=== PATIENT | female | born 1980 | race Caucasian/White ===

== ENCOUNTER 2017-12-13 08:45 | Emergency (ER) | payer OTHER ==
[2017-12-13 09:07] VITALS: BP 110/58
--- NOTE | 2017-12-13 09:25 | UC ---
Lower Extremity/Ankle HPI - HPI Summary HPI Summary: Patient presents with an unremarkable past medical history. She presents today s /p mechanical fall that occurred yesterday while hiking. At that time she feel on her right knee and did not have any pain in the left foot. She was able to get up and continue walking and finished the hike without any distracting pain of the right knee of left foot. This morning she had pain on the top of the left foot and could not walk on it. She states not pain at rest and sever pain when she tries to walk. she denies . She denies any head or neck injury no LOC at time of fall. - History of Current Complaint Chief Complaint: UCLowerExtremity Stated Complaint: L FOOT INJURY Time Seen by Provider: 12/13/17 09:09 Hx Obtained From: Patient Hx Last Menstrual Period: 11/27/17 Onset/Duration: Gradual Onset, Lasting Hours Severity Initially: Mild Severity Currently: Severe Pain Intensity: 9 Aggravating Factor(s): Standing, Ambulation Alleviating Factor(s): Rest, Elevation Able to Bear Weight: No - Risk Factors Gout Risk Factors: Negative DVT Risk Factors: Negative Septic Arthritis Risk Factor: Negative - Allergies/Home Medications Allergies/Adverse Reactions: Allergies Allergy/AdvReac Type Severity Reaction Status Date / Time No Known Allergies Allergy Verified 12/13/17 09:08 Home Medications: Home Medications NK [No Home Medications Reported] 12/13/17 [History Confirmed 12/13/17] PMH/Surg Hx/FS Hx/Imm Hx Previously Healthy: Yes - Surgical History Surgical History: None - Family History Known Family History: Positive: Diabetes - Social History Lives: With Family Alcohol Use: None Substance Use Type: None Smoking Status (MU): Never Smoked Tobacco Have You Smoked in the Last Year: No Review of Systems Constitutional: Negative Skin: Negative Eyes: Negative ENT: Negative Respiratory: Negative Cardiovascular: Negative Gastrointestinal: Negative Genitourinary: Negative Motor: Negative Neurovascular: Negative Musculoskeletal: Decreased ROM, Myalgia, Other: - left foot pain, swelling and bruising. Neurological: Negative Psychological: Negative Is Patient Immunocompromised?: No All Other Systems Reviewed And Are Negative: Yes Physical Exam Triage Information Reviewed: Yes Appearance: Pain Distress Vital Signs: Initial Vital Signs Temp 99.6 F 12/13/17 09:00 Pulse 79 12/13/17 09:00 Resp 14 12/13/17 09:00 BP 110/58 12/13/17 09:00 Pulse Ox 100 12/13/17 09:00 Vital Signs Reviewed: Yes Musculoskeletal: Positive: Strength Limited @, ROM Limited @ - left fot; dorsum mid foot yellow bruise noted. Palpationl tenderness of mid-dorsal foot on palpation. ROM, full flexion and extension of ankle and toes, but with reproducible pain of the dorsum of foot with flexion and extension of toes. Sensation: intact. Vasc; PP +, cap refill less than 3 seconds. Neurological Exam: Normal Skin Exam: Normal Lower Extremity Course/Dx - Course Course Of Treatment: Patient presents one day s/p mechanical fall yesterday. Presents with noted bruising to the dorum of the left foot. She remained neuro- vasc intact, but could not bear weight. Xrays of the left foot were obtained and were negative for fracture. She was placed in post-op shoe, provided crutches for non-weigh bearing and referred to orthopedist, [facility]. The injuries I feel are consistent the foot strain, parker. However is her symptoms persist futher imaging is warrented. The patient verbalized understanding of and in agreement with the discharge plan. - Differential Dx/Diagnosis Differential Diagnosis/HQI/PQRI: Sprain, Strain Provider Diagnoses: Left foot strain. Left foot sprain Discharge - Sign-Out/Discharge Documenting (check all that apply): Patient Departure - Discharge Plan Condition: Stable Disposition: HOME Patient Education Materials: Foot Sprain (ED) Referrals: No Primary Care Phys,NOPCP [Primary Care Provider] - Inna Paul MD [Medical Doctor] - Additional Instructions: Please call Dr. Paul for out patient follow up of your foot injury. - Billing Disposition and Condition Condition: STABLE Disposition: Home
--- NOTE | 2017-12-13 09:53 | RAD ---
INDICATION: Left foot injury COMPARISON: None TECHNIQUE: AP, lateral, and oblique views were obtained. FINDINGS: The bony structures, joint spaces, and soft tissues are normal for age. IMPRESSION: NEGATIVE EXAMINATION.
== END 2017-12-13 10:36 | disposition home or self-care (01) ==
LOC: UCEAST 08:45
DX: S96.912A Strain of unspecified muscle and tendon at ankle and foot level, left foot, initial encounter (principal); S93.602A Unspecified sprain of left foot, initial encounter; M25.561 Pain in right knee; W19.XXXA Unspecified fall, initial encounter; Y92.9 Unspecified place or not applicable
CPT/HCPCS: 99203; G0463

== ENCOUNTER 2018-05-23 09:26 | Emergency (ER) | payer OTHER ==
[2018-05-23 09:35] VITALS: BP 128/83
[2018-05-23] MEDS ORDERED: Albuterol/Ipratropium NEB.SOL* Albuterol 2.5 MG/Ipratropium 0.5 MG 3 ML INH ONE (10:37)
--- NOTE | 2018-05-23 10:42 | ED ---
HPI Cardiac - HPI Summary HPI Summary: Patient presents with 1 week of respiratory symptoms/flulike symptoms. She reports she started with a dry cough on Thursday. This is progressed into nasal congestion with rhinorrhea, postnasal drip and symptoms of body aches yesterday. This is resolved today. She denies tahmina fever, chills, sore throat , ear pain, rash, nausea, vomiting, diarrhea. She denies known sick contacts. She tried an [id number] pain medication for her headache which has helped. Denies history of asthma, pneumonia and smoking. - History of Current Complaint Chief Complaint: UCRespiratory Stated Complaint: COUGH Time Seen by Provider: 05/23/18 10:21 Hx Obtained From: Patient Hx Last Menstrual Period: 05/06/18 Pain Intensity: 4 - Allergy/Home Medications Allergies/Adverse Reactions: Allergies Allergy/AdvReac Type Severity Reaction Status Date / Time No Known Allergies Allergy Verified 05/23/18 09:35 PMH/Surg Hx/FS Hx/Imm Hx Previously Healthy: Yes Cardiovascular History: Denies: Hx Congenital Heart Disease, Hx Congestive Heart Failure Respiratory History: Denies: Hx Asthma, Hx Chronic Obstructive Pulmonary Disease (COPD), Hx Pneumonia, Hx Pulmonary Embolism Sensory History: Reports: Hx Contacts or Glasses Opthamlomology History: Reports: Hx Contacts or Glasses Infectious Disease History: No Infectious Disease History: Denies: Traveled Outside the [place] in Last 30 Days - Family History Known Family History: Positive: Diabetes - Social History Alcohol Use: None Hx Substance Use: No Substance Use Type: Reports: None Hx Tobacco Use: No Smoking Status (MU): Never Smoked Tobacco Have You Smoked in the Last Year: No Review of Systems Positive: Fatigue. Negative: Fever, Chills Eyes: Negative ENT: Other - PND Positive: Nasal Discharge. Negative: Sore Throat, Ear Ache Positive: Chest Pain - lower sternal and epigastric soreness w/ cough Positive: Cough. Negative: Shortness Of Breath Gastrointestinal: Negative Positive: no symptoms reported Musculoskeletal: Negative Skin: Negative Positive: Headache. Negative: Weakness, Paresthesia, Numbness, Syncope, Slurred Speech Psychological: Normal All Other Systems Reviewed And Are Negative: Yes Physical Exam Triage Information Reviewed: Yes Vital Signs On Initial Exam: Initial Vitals Temp Pulse Resp BP Pulse Ox 99.8 F 98 20 128/83 97 05/23/18 09:31 05/23/18 09:31 05/23/18 09:31 05/23/18 09:31 05/23/18 09:31 Vital Signs Reviewed: Yes Appearance: Positive: No Pain Distress, Ill-Appearing - appears mildly ill - dry cough throughout visit, Thin Skin: Positive: Warm, Skin Color Reflects Adequate Perfusion, Dry - no diaphoresis, no rash Head/Face: Positive: Normal Head/Face Inspection Eyes: Positive: Normal, EOMI, KARLIE, Conjunctiva Clear. Negative: Conjunctiva Inflammed, Discharge ENT: Positive: Normal ENT inspection, Hearing grossly normal, Pharynx normal, Nasal congestion - mild, Nasal drainage - clear, TMs normal, Uvula midline. Negative: Tonsillar swelling, Tonsillar exudate, Trismus, Muffled voice Neck: Positive: Supple, Nontender Respiratory/Lung Sounds: Positive: Clear to Auscultation, Breath Sounds Present , Other - coughing. Negative: Rales, Rhonchi, Stridor, Tracheal Deviation, Wheezes, Fatigue Cardiovascular: Positive: Normal, RRR, S1, S2. Negative: Murmur, Rub, Leg Edema Left, Leg Edema Right Abdomen Description: Positive: Nontender, Soft Musculoskeletal: Positive: Normal, Strength/ROM Intact Neurological: Positive: Normal, Sensory/Motor Intact, Alert, Oriented to Person Place, Time, CN Intact II-III Psychiatric: Positive: Normal - concerned but polite, cooperative Diagnostics - Vital Signs Vital Signs Temp Pulse Resp BP Pulse Ox 05/23/18 09:31 99.8 F 98 20 128/83 97 - Laboratory Lab Statement: Any lab studies that have been ordered have been reviewed, and results considered in the medical decision making process. Re-Evaluation - Re-Evaluation First Eval Change: Improved Disposition - Course Course Of Treatment: r/o PNA, bronchitis. CXR: no acute findings. Suspect bronchitis and tx implemented for this. Pt aware of supportive care and f/u as well as danger s/sx of when to return to ED. - Diagnoses Provider Diagnoses: Bronchitis Discharge - Sign-Out/Discharge Documenting (check all that apply): Patient Departure All imaging exams completed and their final reports reviewed: Yes - Discharge Plan Condition: Stable Disposition: HOME Prescriptions: Albuterol HFA INHALER* [Ventolin HFA Inhaler*] 2 puff INH Q6H PRN #1 mdi PRN Reason: Cough Patient Education Materials: Acute Bronchitis (ED) Referrals: [facility] [Outside] Additional Instructions: You appear to have a viral URI resulting in bronchitis - see education for details. You may try an inhaler sent to your pharmacy for relief of chest tightness with cough as well as the following remedies for relief: Nasal wash (netti pot or saline spray) & salt water throat gargles 2 x day Drink you body weight in ounces of water every day Sleep 8+ hours per night Avoid Dairy and sugar Hot herbal/decaf tea with lemon & honey Chicken broth (preferably organic, free range chicken) Humidifier in house, but especially near bed at night Keep home temperature at 68F or less to reduce dryness Use cough drops/throat lozenges Try a facial steam with or without eucalyptus essential oil or Manish's Vapor rub for congestion Avoid smoke, candles, perfumes, colognes, scented soaps/detergents , air fresheners and cleaning chemicals as these can cause airway irritation and trigger coughing Start Vitamin D3 5000iu and Vitamin C 1000mg every day during illness If symptoms persist, follow-up with [facility]. *If worse, go to ED - Billing Disposition and Condition Condition: STABLE Disposition: Home
== END 2018-05-23 11:21 | disposition home or self-care (01) ==
LOC: UCEAST 09:26
DX: J40 Bronchitis, not specified as acute or chronic (principal)
CPT/HCPCS: 71046; 99212; A9270-GY; G0463

== ENCOUNTER 2019-08-27 05:33 | Inpatient (IN) | payer OTHER, MEDICAID ==
[2019-08-27] MEDS ORDERED: Lactated Ringers 1000 ML Bag* 1,000 ML IV ONE ×2 (06:23→11:45)
[2019-08-27] MEDS ORDERED: Buffered Lidocaine 1% SYRIN* 1 ML/SYRINGE INTRADERM ONE (06:23)
--- NOTE | 2019-08-27 06:31 | HP ---
General Information - Reason for Visit IUP@40+4 here with SROM at 0430 on 08/26 clear fluid - General Information Maternal Age: 39 Grav: 4 Para: 3 SAB: 0 IEA: 0 Estimated Due Date: 08/23/19 Determined By: Early Ultrasound Gestational Age in Weeks/Days: 40 Maternal Blood Type and Rh: B Positive - Results this Serology/RPR Result: Non-Reactive Rubella Result: Immune HBsAg Result: Negative HIV Result: Negative GBS Culture Result: Negative Past Medical History Delivery History: Hx Complicated Vaginal Delivery - G1: Vacuum delivery; G2: stillbirth; G3: none Pertinent Past Medical History: See Records Past Medical History Comment: Thyroid disease- , after first . Managed expectantly. Pertinent Past Surgical History: None Pertinent Family History: See Records Family History Comment: Father: diabetes Mother: HTN - Antepartal Records Antepartal Records: Reviewed, Complicated by: - AMA, right ovarian cyst Review of Systems Constitutional: Uncomfortable CV Complaint: No Respiratory: Shortness of Breath: No Gastrointestinal: No Nausea/Vomiting, Normal Bowel Movement Genitourinary: Leaking Fluid, No Dysuria, No Bleeding Musculoskeletal: Contractions Neurological: No Headache, No Visual Changes Movement: Normal Exam Allergies/Adverse Reactions: Allergies No Known Allergies Allergy (Verified 05/23/18 09:35) Temp 98.2, BP 114/85, HR 84, O2 95% - Measurements Height: 5 ft 8.5 in Weight: 174 lb 2.643 oz Weight in lbs: 174.934515 Body Mass Index (BMI): 26.1 Pre- Weight: 132 lb 4.438 oz Weight Gained This : 41.887 lbs and 0.013 ozs - Exam Breast: Breast Exam Deferred CVA: No CVA Tenderness Extremities: No Edema Heart: Normal Rhythm/Heart Sounds HEENT: No Significant Findings Lungs: Clear Bilaterally Rectal: Rectal Exam Deferred Reflexes: DTR 2+ - Abdominal Exam Abdomen Exam: Non-Tender - Ultrasound/Biophysical Profile Ultrasound Status: Not Done Targeted Exam Findings Estimated Weight: 7.5 lbs Cervical Exam: 4cm, 5cm Effacement: 80% Station: -1 Presenting Part: Vertex Membrane Status: SROM Amniotic Fluid Evaluation: Gross Rupture Bleeding/Discharge: None EFM Findings - External Monitor Findings Baseline Heart Rate: 130 External Monitor Findings: Accelerations Present, No Pattern of Variable or Late Decelerations, Variability Moderate, Baseline Stable External Monitor Findings Comment: No evidence of metabolic acidemia Contractions: Regular, Moderate, 45-90 Seconds Contraction Frequency: 3-5 mins Assessment/Plan - Assessment IUP@40+5 SROM to clear fluid@0430 In early labor VSS, GBS negative, B+, [place] OB hx significant for stillbirth@23 weeks in [facility] complicated by AMA and ovarian cyst Contractions becoming more regular, good resting tone No evidence of metabolic acidemia Undecided on pain management plan - likely epidural - Plan Plan: Admit - Anticipate Vaginal Delivery Plan Comment: Admit to L&D IV and labs now Epidural prn Anticipate progression to - Date/Time of Admission Date of Admission: 08/27/19 Time of Admission: 06:30
[2019-08-27 06:53] LABS: ABS Eosinophils 0.1 10^3/ul (0-0.6); ABS Lymphocytes 1.1 10^3/ul (1.0-4.8); ABS Monocytes 0.7 10^3/ul (0-0.8); ABS Neutrophils 5.6 10^3/ul (1.5-7.7); Eosinophil % 1.8 %; Hematocrit 37 % (35-47); Hemoglobin 12.7 g/dL (12.0-16.0); Lymphocyte % 14.8 %; Mean Corpuscular HGB Conc 34 g/dL (31-36); Mean Corpuscular Hemoglobin 28 pg (27-31); Mean Corpuscular Volume 82 fL (80-97); Mean Platelet Volume 10.6 fL (7.4-10.4); Platelet Count 165 10^3/uL (150-450); Red Blood Count 4.49 10^6 /uL (3.70-4.87); Red Cell Distribution Width 13 % (10-15); White Blood Count 7.6 10^3/uL (3.5-10.8)
[2019-08-27 06:57] LABS: Urine Benzodiazepine Screen None Detected (None Detect); Urine Opiates Screen None Detected (None Detect)
[2019-08-27] MEDS ORDERED: Lactated Ringers 1000 ML Bag* 1,000 ML IV SCH ×3 (07:00→15:00)
--- NOTE | 2019-08-27 09:41 | PN ---
Progress Note - Progress Note Date of Service: 08/27/19 SOAP: Subjective: Pt saba about every 5 minutes, using TENS device, breathing through them Not yet ready for epidural. Objective: Cervical exam deferred FHR: Baseline 125/ moderate variability/ + accels/ no decels Ctx every 4-5 BP 118/77, Temp 98.0 Fluid clear Assessment: Pt appears to be getting more uncomfortable. No evidence of acidemia or chorioamnionitis. Plan: Discussed option of augmenting with Pitocin vs expectant management. Pt currently 5 hours post SROM. Pt prefers expectant management at this time. Interested in epidural eventually, but not ready yet. Will check back in with her in an hour or so.
[2019-08-27] MEDS ORDERED: OBEPIDURAL* 250 ML EPIDURAL ONE (10:54)
--- NOTE | 2019-08-27 11:12 | PN ---
Progress Note - Progress Note Date of Service: 08/27/19 SOAP: Subjective: Pt more uncomfortable , states the TENS unit is "not working," requests epidural She also states she is open to Pitocin augmentation if needed. Objective: Cervical exam deferred FHR: Baseline 125/ moderate variability/ + accels/ no decels UCs: 3-4 minutes Temp:98.0 Assessment: Pt appears to be progressing into active labor. No evidence of acidemia or chorioamnionitis. Plan: Labor epidural. Once pt is comfortable, check for dilation and consider Pitocin augmentation if needed.
[2019-08-27] MEDS ORDERED: EPHEDrine (Pressors)* 50 MG/ML VIAL IV PUSH PRN ×2 (11:45)
[2019-08-27] MEDS ORDERED: Phenylephrine 40 MCG/ML SYRINGE IV PUSH PRN ×2 (11:45)
[2019-08-27] MEDS ORDERED: Lactated Ringers 1000 ML Bag* 500 ML IV PRN ×2 (11:45)
[2019-08-27] MEDS ORDERED: Sodium Citrate/Citric Acid* 15 ML UDC PO PRN (11:45)
[2019-08-27] MEDS ORDERED: Famotidine TAB* 20 MG PO PRN (11:45)
[2019-08-27] MEDS ORDERED: Lidocaine 1% w EPI 1:200,000* SDV 30 ML VIAL ONE (11:46)
[2019-08-27] MEDS ORDERED: Lidocaine 1% INJ* 10 MG/ML 30 ML SDV ONE ×2 (11:46→17:55)
[2019-08-27] MEDS ORDERED: OBEPIDURAL* 250 ML EPIDURAL SCH (12:00)
[2019-08-27] MEDS ORDERED: Oxytocin in LR* 20 UNITS/1,000 ML BAG IVPB ONE (12:21)
--- NOTE | 2019-08-27 13:25 | PN ---
Progress Note - Progress Note Date of Service: 08/27/19 SOAP: Subjective: Pt comfortable with epidural, does not feel contractions. Objective: At last exam cervix was 4-5 cm/ 90%/ 0 station Pitocin at 2 mu/min FHR: Baseline 125/ moderate variability/ no accels, single isolated decel. UCs: 3-5 minutes Temp: 98.7 Assessment: Pt comfortable. No evidence of acidemia or chorioamnionitis. Utilizing Pitocin augmentation for prelabor rupture of membranes. Plan: Continue Pitocin augmentation. Anticipate progression to full dilation and .
[2019-08-27] MEDS ORDERED: Acetaminophen TAB* 325 MG PO PRN (14:51)
[2019-08-27] MEDS ORDERED: Glycerin ADULT SUPP PR PRN (14:51)
[2019-08-27] MEDS ORDERED: Witch Hazel PAD* JAR TOPICAL PRN (14:51)
[2019-08-27] MEDS ORDERED: Dibucaine 1% 28.35 GM TUBE PR PRN (14:51)
[2019-08-27] MEDS ORDERED: Oxytocin in LR* 20 UNITS/1,000 ML BAG IVPB SCH (15:00)
--- NOTE | 2019-08-27 18:02 | PROCNOTE ---
[facility] OB: Delivery Note - Delivery A Date of : 08/27/19 Time of : 14:21 [place] Sex: Male Weight at : 3.801 kg Score 1 Minute: 8 Score 5 Minutes: 9 Gestational Age in Weeks and Days at Delivery: 40 Weeks and 4 Days Delivery Method: Spontaneous Vaginal Labor: Spontaneous Did Patient attempt ?: N/A, No Previous Amniotic Fluid: Clear Estimated Blood Loss: 200 Anesthesia/Analgesia: CEI for Labor Delivered By: Gianna Pascual Nursery Level of Nursery: Regular/Bedside - Perineum Perineal Injury: None/Intact Perineal Repair: None - Events Delivery Events of Note: Pitocin During Labor - Risk for Falls Other Risk for Falls: none - Additional Delivery Notes Additional Delivery Notes: Pt admitted to Labor and Delivery with prelabor rupture of membranes. Began to contract but did not progress into active labor until augmented with Pitocin. Pt requested and received an epidural for pain relief to good effect. Pt made rapid progress to full dilation and began to experience urge to push. Pt coached on pushing with steady descent. Pt soon brought to and coached through slow, controlled delivery of the head. Shoulders followed without difficulty and nuchal cord x1 unwrapped. placed on maternal abdomen with vigorous cry, good tone, HR> 100. After cord pulsation ceased cord clamped x2 and cut. Placenta soon delivered, spontaneous and danna. Minimal bleeding noted. Pitocin increased to 250 cc/ hr. Inspection of perineum revealed it to be intact. Pt and infant stable at this time, anticipate normal course.
[2019-08-27] MEDS: Ibuprofen TAB* 600 MG PO PRN (19:57)
[2019-08-27] MEDS: Docusate CAP* 100 MG PO SCH (21:02)
[2019-08-28 06:47] LABS: ABS Basophils 0.1 10^3/ul (0-0.2); ABS Eosinophils 0.2 10^3/ul (0-0.6); ABS Lymphocytes 1.4 10^3/ul (1.0-4.8); ABS Monocytes 0.8 10^3/ul (0-0.8); ABS Neutrophils 8.2 10^3/ul (1.5-7.7); Eosinophil % 1.5 %; Hematocrit 38 % (35-47); Hemoglobin 12.9 g/dL (12.0-16.0); Lymphocyte % 12.9 %; Mean Corpuscular HGB Conc 34 g/dL (31-36); Mean Corpuscular Hemoglobin 28 pg (27-31); Mean Corpuscular Volume 83 fL (80-97); Mean Platelet Volume 10.3 fL (7.4-10.4); Platelet Count 154 10^3/uL (150-450); Red Blood Count 4.56 10^6 /uL (3.70-4.87); Red Cell Distribution Width 13 % (10-15); White Blood Count 10.6 10^3/uL (3.5-10.8)
[2019-08-28] MEDS: Ibuprofen TAB* 600 MG PO PRN (08:25)
[2019-08-28] MEDS ORDERED: Ferrous Gluconate TAB* 324 MG TAB PO SCH (09:00)
[2019-08-28] MEDS: Docusate CAP* 100 MG PO SCH ×3 (10:20→20:34)
[2019-08-29] MEDS ORDERED: Hydrocortisone 1% CREAM* 30 GM TUBE TOPICAL ONE (00:26)
[2019-08-29] MEDS: Hydrocortisone 1% CREAM* 30 GM TUBE TOPICAL SCH ×2 (00:32→13:23)
[2019-08-29 07:46] VITALS: BP 93/53
[2019-08-29] MEDS: Docusate CAP* 100 MG PO SCH (13:23)
== END 2019-08-29 17:00 | disposition home or self-care (01) | DRG 807 ==
LOC: MCHOBOUT 05:33 → MCHOB 06:05
PROVIDERS: ADMIT Advanced Practice Midwife; ATTEND Advanced Practice Midwife
PROC: 10E0XZZ Delivery of Products of Conception, External Approach (ICD-10-PCS; principal; 2019-08-27)
DX: O48.0 Post-term pregnancy (principal); Z37.0 Single live birth; Z3A.40 40 weeks gestation of pregnancy; O99.284 Endocrine, nutritional and metabolic diseases complicating childbirth; E07.9 Disorder of thyroid, unspecified; O69.81X0 Labor and delivery complicated by cord around neck, without compression, not applicable or unspecified
CPT/HCPCS: 36415; 80307; 85025; 86850; 86900; 86901; A9270-GY; G0480; J2001